=== PATIENT | female | born 1955 | race Caucasian/White ===

== ENCOUNTER 2017-04-08 07:49 | Emergency (ER) | payer OTHER ==
[~2017-04-08] VITALS: Ht 167.6 cm; Wt 72.6 kg
[2017-04-08 08:01] VITALS: BP_SYST 161
[2017-04-08] MEDS ORDERED: DULO60CA41 PO (08:37)
[2017-04-08] MEDS ORDERED: DIGO125T79 PO (08:37)
[2017-04-08] MEDS ORDERED: ATEN50TA PO (08:37)
[2017-04-08] MEDS ORDERED: OXCA150T5 PO (08:37)
[2017-04-08] MEDS ORDERED: PRO40 PO (08:37)
[2017-04-08] MEDS ORDERED: HYDR-1189 PO (08:37)
[2017-04-08] MEDS ORDERED: BUPR300T55 PO (08:37)
[2017-04-08] MEDS ORDERED: NOR10 PO (08:37)
[2017-04-08 08:53] LABS: HEMATOCRIT 26.4 % (36-48); HEMOGLOBIN 8.2 g/dL (12.0-16.0); MEAN CORPUSCULAR HEMOGLOBIN 25 pg (27-31); MEAN CORPUSCULAR HGB CONC 31 % (32-36); MEAN CORPUSCULAR VOLUME 81 fL (79.0-98.0); PLATELET COUNT (AUTO) 407 K/uL (130-430); RED BLOOD CELL COUNT(AUTO) 3.26 MIL/uL (4.2-6.2); RED CELL DISTRIBUTION WIDTH 18.8 % (9.0-15.0); WHITE BLOOD COUNT (AUTO) 3.2 K/uL (4.8-10.8)
[2017-04-08 08:58] LABS: CALCIUM 9.1 mg/dL (8.4-11.0); POTASSIUM 4.4 mmol/L (3.5-5.1)
[2017-04-08 09:02] LABS: PROTHROMBIN TIME 9.7 SECS (9.5-12.5)
[2017-04-08 09:07] LABS: ALBUMIN 3.7 g/dL (3.4-4.8); DIGOXIN 0.2 ng/mL (0.80-2.00); TOTAL BILIRUBIN 0.2 mg/dL (0.0-1.0)
[2017-04-08] MEDS: ACETAMINOPHEN 325 MG TABLET PO ONE (09:13)
[2017-04-08 10:16] LABS: BAND % (MANUAL) 5 % (0-6); BASOPHILS % (MANUAL) 0 % (0-2); EOSINOPHILS % (MANUAL) 5 % (0-7); LYMPHOCYTES % (MANUAL) 18 % (20-46); MONOCYTES % (MANUAL) 3 % (0-11)
[2017-04-08 10:21] VITALS: BP_SYST 148
== END 2017-04-08 10:21 | disposition home or self-care (01) ==
LOC: SED 07:49
DX: D64.9 Anemia, unspecified (principal); J40 Bronchitis, not specified as acute or chronic; R51 Headache
CPT/HCPCS: 36415; 70450-TC; 71020-TC; 80053; 80162-TC; 84484; 85007; 85027; 85610-TC; 85730-TC; 86886; 86900; 86901; 93005; 99285

== ENCOUNTER 2017-04-20 18:44 | Emergency (ER) | payer OTHER, MEDICAID ==
[~2017-04-20] VITALS: Ht 167.6 cm; Wt 72.6 kg
[~2017-04-20 18:44] MED LIST: ATEN50TA PO; BUPR300T55 PO; DIGO125T79 PO; DULO60CA41 PO; HYDR-1189 PO; NOR10 PO; OXCA150T5 PO; PRO40 PO
[2017-04-20 18:46] VITALS: BP_SYST 99
--- NOTE | 2017-04-20 18:50 | NUR ---
Patient triaged and placed in waiting room. VSS and patient appears in no acute distress at this time. Awaiting available bed and MD notified of need for MSE.
--- NOTE | 2017-04-20 19:15 | NUR ---
Patient called for labs and EKG, states she's "stepping out for 10 min to eat" will return in 10 min.
--- NOTE | 2017-04-20 19:38 | NUR ---
Patient to lab for lab draw.
[2017-04-20] MEDS ORDERED: NS 500 ML IV SCH (21:01)
[2017-04-20 21:06] LABS: HEMOGLOBIN 7.7 g/dL (12.0-16.0); MEAN CORPUSCULAR HEMOGLOBIN 24 pg (27-31); MEAN CORPUSCULAR HGB CONC 30 % (32-36); MEAN CORPUSCULAR VOLUME 80 fL (79.0-98.0); PLATELET COUNT (AUTO) 310 K/uL (130-430); PROTHROMBIN TIME 9.8 SECS (9.5-12.5); RED BLOOD CELL COUNT(AUTO) 3.26 MIL/uL (4.2-6.2); WHITE BLOOD COUNT (AUTO) 5.6 K/uL (4.8-10.8)
[2017-04-20 21:07] LABS: ALBUMIN 3.9 g/dL (3.4-4.8); CALCIUM 9.2 mg/dL (8.4-11.0); CREATININE 2.44 mg/dL (0.55-1.30); POTASSIUM 4.2 mmol/L (3.5-5.1); TOTAL BILIRUBIN 0.2 mg/dL (0.0-1.0)
[2017-04-20] MEDS ORDERED: PANTOPRAZOLE SODIUM 40 MG/VIAL (PROTONIX) IVP ONE (21:15)
--- NOTE | 2017-04-20 21:22 | NUR ---
Patient to ER bed 6 to gown for evaluation. Side rails up. Report given to ROSA MARIA SHIELDS.
--- NOTE | 2017-04-20 21:23 | NUR ---
ER MD Verduzco at bedside for medical evaluation.
--- NOTE | 2017-04-20 21:25 | NUR ---
Patient brought in by ambulance [facility] for complaint of brigh red blood with BM and weakness for several months. Patient AOx4. Patient states no other symptoms or complaints at this time.
[2017-04-20 21:30] LABS: BASOPHILS % (MANUAL) 0 % (0-2); EOSINOPHILS % (MANUAL) 3 % (0-7); LYMPHOCYTES % (MANUAL) 15 % (20-46); MONOCYTES % (MANUAL) 8 % (0-11)
--- NOTE | 2017-04-20 22:10 | NUR ---
# 20 gauge angiocath placed to LAC. Use of asceptic technique. Opsite placed over site. Blood return noted. Flushed with 10 cc of normal saline. No evidence of infiltration noted. Patient tolerated well.
[2017-04-20] MEDS ORDERED: ACETAMINOPHEN 500 MG TABLET PO ONE (22:30)
--- NOTE | 2017-04-20 22:45 | NUR ---
IVF infusing with no s/s of infiltration at this time. Will cont to monitor.
--- NOTE | 2017-04-20 22:50 | NUR ---
No adverse reactions noted after medication administration. Will continue to monitor.
[2017-04-20 23:54] VITALS: BP_SYST 105
--- NOTE | 2017-04-20 23:54 | NUR ---
Patient given written and verbal discharge instructions and verbalizes understanding. ER MD discussed with patient the results and treatment provided. Patient in stable condition. ID arm band removed. IV catheter removed intact and dressing applied, no active bleeding. Rx of Iron given. Patient educated on pain management and to follow up with PMD. Pain Scale 0/10. Opportunity for questions provided and answered.
== END 2017-04-20 23:54 | disposition home or self-care (01) ==
LOC: SED 18:44
DX: K92.2 Gastrointestinal hemorrhage, unspecified (principal); R42 Dizziness and giddiness; D64.9 Anemia, unspecified
CPT/HCPCS: 36415; 71045; 80053; 85007; 85027; 85610; 85730; 93005; 96361; 96374; 99285; C9113; J7040

== ENCOUNTER 2017-11-05 16:36 | Emergency (ER) | payer OTHER, MEDICAID ==
[~2017-11-05] VITALS: Ht 167.6 cm; Wt 70.3 kg
[2017-11-05 16:50] VITALS: BP_SYST 102
[2017-11-05 18:15] VITALS: BP_SYST 100
== END 2017-11-05 18:15 | disposition home or self-care (01) ==
LOC: SED 16:36
DX: S61.216A Laceration without foreign body of right little finger without damage to nail, initial encounter (principal); I10 Essential (primary) hypertension; F17.210 Nicotine dependence, cigarettes, uncomplicated; Z79.899 Other long term (current) drug therapy; W20.8XXA Other cause of strike by thrown, projected or falling object, initial encounter; Y93.89 Activity, other specified; Y92.89 Other specified places as the place of occurrence of the external cause; Y99.8 Other external cause status
CPT/HCPCS: 99283

== ENCOUNTER 2017-12-16 22:21 | Emergency (ER) | payer OTHER, MEDICAID ==
[~2017-12-16] VITALS: Ht 167.6 cm; Wt 70.3 kg
[2017-12-16 22:29] VITALS: BP_SYST 109
[2017-12-16] MEDS ORDERED: KETOROLAC TROMETHAMINE 30 MG VIAL IVP ONE (22:30)
[2017-12-16] MEDS ORDERED: NACL 0.9% 1,000 ML IV ONE (22:30)
[2017-12-16 22:58] LABS: HEMATOCRIT 31.3 % (36-48); HEMOGLOBIN 10.5 g/dL (12.0-16.0); MEAN CORPUSCULAR HEMOGLOBIN 31 pg (27-31); MEAN CORPUSCULAR HGB CONC 34 % (32-36); MEAN CORPUSCULAR VOLUME 91 fL (79.0-98.0); PLATELET COUNT (AUTO) 412 K/uL (130-430); RED BLOOD CELL COUNT(AUTO) 3.43 MIL/uL (4.2-6.2); WHITE BLOOD COUNT (AUTO) 6.5 K/uL (4.8-10.8)
[2017-12-16] MEDS ORDERED: HYDR-3110 PO (22:58)
[2017-12-16] MEDS ORDERED: DIPH25CA83 PO (22:58)
[2017-12-16] MEDS ORDERED: ACET-2165 PO (22:58)
[2017-12-16] MEDS ORDERED: ZOLP10TA2 PO (22:58)
[2017-12-16] MEDS ORDERED: BUPR300T55 PO (22:58)
[2017-12-16] MEDS ORDERED: TRAZ-126 PO (22:58)
[2017-12-16] MEDS ORDERED: AMPH30CA7 PO (22:58)
[2017-12-16] MEDS ORDERED: DULO60CA41 PO (22:58)
[2017-12-16 22:59] LABS: CALCIUM 9.2 mg/dL (8.4-11.0); CREATININE 1.6 mg/dL (0.55-1.30); POTASSIUM 3.6 mmol/L (3.5-5.1)
[2017-12-16 23:05] LABS: ALBUMIN 4.3 g/dL (3.4-4.8); TOTAL BILIRUBIN 0.3 mg/dL (0.0-1.0)
[2017-12-16 23:17] LABS: BASOPHILS % (MANUAL) 0 % (0-2); EOSINOPHILS % (MANUAL) 2 % (0-7); LYMPHOCYTES % (MANUAL) 12 % (20-46); MONOCYTES % (MANUAL) 9 % (0-11)
[2017-12-17] MEDS ORDERED: SUMAtriptan SUCCINATE 6 MG/0.5 ML VIAL SUBCUT ONE
[2017-12-17 00:23] VITALS: BP_SYST 110
== END 2017-12-17 00:23 | disposition home or self-care (01) ==
LOC: SED 22:21
DX: N17.9 Acute kidney failure, unspecified (principal); F41.9 Anxiety disorder, unspecified; R06.00 Dyspnea, unspecified; F10.129 Alcohol abuse with intoxication, unspecified; F17.210 Nicotine dependence, cigarettes, uncomplicated; D64.9 Anemia, unspecified; I10 Essential (primary) hypertension; F32.9 Major depressive disorder, single episode, unspecified; Z79.899 Other long term (current) drug therapy; Z71.6 Tobacco abuse counseling
CPT/HCPCS: 36415; 71045; 80053; 85007; 85027; 96361; 96372; 96374; 99285; G0482; J1885; J3030; J7030

== ENCOUNTER 2018-01-19 00:38 | Emergency (ER) | payer OTHER, MEDICAID ==
[~2018-01-19] VITALS: Ht 167.6 cm; Wt 68.0 kg
[2018-01-19 00:38] VITALS: BP_SYST 105
[~2018-01-19 00:38] MED LIST changes: +ACET-2165 PO; +AMPH30CA7 PO; -DIGO125T79 PO; +DIPH25CA83 PO; -HYDR-1189 PO; +HYDR-3110 PO; -NOR10 PO; -OXCA150T5 PO; +TRAZ-126 PO; +ZOLP10TA2 PO
--- NOTE | 2018-01-19 00:38 | NUR ---
Patient to ER bed 7 to gown for evaluation. Side rails up. Report given to ROSA MARIA MILLER.
--- NOTE | 2018-01-19 01:00 | NUR ---
Awake, alert. Pt presents complaining of rib pain and pain upon cough and inhalation. States she has bladder and kidney infection. Also states she is s/p fall 2 days ago wherein, her chest fell at the corner of thtable.
--- NOTE | 2018-01-19 01:25 | NUR ---
ER at bedside examining patient.
[2018-01-19] MEDS ORDERED: fentaNYL CITRATE/PF 100 MCG/2 ML AMP IVP ONE ×2 (01:30→03:30)
--- NOTE | 2018-01-19 02:24 | NUR ---
Fentanyl 25 mcg ivp given for c/o pain with little relief. spasms still present.
--- NOTE | 2018-01-19 03:00 | NUR ---
Slept intermittently. Multiple questions when awake. Questions answered.
[2018-01-19] MEDS ORDERED: DIPHENHYDRAMINE INJ 50 MG/ML VIAL IVP ONE (03:30)
[2018-01-19 03:31] LABS: BILIRUBIN,URINE NEGATIVE (NEGATIVE); BLOOD, URINE NEGATIVE (NEGATIVE); CLARITY/URINE CLEAR (CLEAR); COLOR,URINE YELLOW (YELLOW); GLUCOSE,URINE NEGATIVE (NEGATIVE); KETONES,URINE NEGATIVE (NEGATIVE); LEUKOCYTE ESTERASE ,URINE 1+ (NEGATIVE); NITRITE, URINE NEGATIVE (NEGATIVE); PH,URINE 5.5 (5.0-8.0); PROTEIN URINE NEGATIVE (NEGATIVE); UROBILINOGEN,URINE 0.2 (0.2-1.0)
--- NOTE | 2018-01-19 03:37 | NUR ---
Sublimaze 50 mcg ivp and benadryl 25 mg ivp given for complaints of residual pain.
--- NOTE | 2018-01-19 03:45 | NUR ---
Hungry. Ate cheese stick, chocolate pudding and drank apple juice. Took nap afterwards.
[2018-01-19 03:47] LABS: BACTERIA,URINE FEW /HPF (None Seen); RBC,URINE 0-3 /HPF (0-3)
[2018-01-19 04:40] VITALS: BP_SYST 105
--- NOTE | 2018-01-19 04:40 | NUR ---
Patient given written and verbal discharge instructions and verbalizes understanding. ER Dr Eugenio ARGUETA discussed with patient the results and treatment provided. Patient in stable condition. ID arm band removed. IV catheter removed intact and dressing applied, no active bleeding. Patient educated on pain management and to follow up with PMD. Pain Scale . Opportunity for questions provided and answered. Medication side effect fact sheet provided.
== END 2018-01-19 04:40 | disposition home or self-care (01) ==
LOC: SED 00:38
DX: R10.9 Unspecified abdominal pain (principal); F32.9 Major depressive disorder, single episode, unspecified; I10 Essential (primary) hypertension; Z79.899 Other long term (current) drug therapy
CPT/HCPCS: 71045; 71110; 81000; 87086; 96374; 96375; 96376; 99285; J1200; J3010

== ENCOUNTER 2018-11-03 02:53 | Emergency (ER) | payer OTHER, MEDICAID ==
[~2018-11-03] VITALS: Ht 167.6 cm; Wt 72.6 kg
[~2018-11-03 02:53] MED LIST changes: -TRAZ-126 PO; +TRAZ-219 PO
[2018-11-03 03:00] VITALS: BP_SYST 132
[2018-11-03] MEDS ORDERED: fentaNYL CITRATE/PF 100 MCG/2 ML AMP IM ONE (04:00)
[2018-11-03] MEDS ORDERED: DIPHENHYDRAMINE INJ 50 MG/ML VIAL IM ONE (04:00)
[2018-11-03 04:44] LABS: BASOPHILS # (AUTO) 0.1 K/uL (0.0-0.2); BASOPHILS % (AUTO) 0.9 % (0.0-2.0); EOSINOPHILS # (AUTO) 0.3 K/uL (0.0-0.4); EOSINOPHILS % (AUTO) 5.1 % (0.0-4.0); HEMATOCRIT 29.9 % (36-48); HEMOGLOBIN 9.8 g/dL (12.0-16.0); LYMPHOCYTES # (AUTO) 0.9 K/uL (1.0-5.5); MEAN CORPUSCULAR HEMOGLOBIN 29 pg (27-31); MEAN CORPUSCULAR HGB CONC 33 % (32-36); MEAN CORPUSCULAR VOLUME 90 fL (79.0-98.0); MONOCYTES # (AUTO) 0.6 K/uL (0.0-1.0); MONOCYTES % (AUTO) 10.4 % (1.7-9.3); NEUTROPHILS % (AUTO) 68.6 % (40.0-70.0); PLATELET COUNT (AUTO) 240 K/uL (130-430); RED BLOOD CELL COUNT(AUTO) 3.34 MIL/uL (4.2-6.2); RED CELL DISTRIBUTION WIDTH 16.8 % (9.0-15.0); WHITE BLOOD COUNT (AUTO) 5.9 K/uL (4.8-10.8)
[2018-11-03 04:57] LABS: CREATININE 1.4 mg/dL (0.55-1.30); POTASSIUM 3.9 mmol/L (3.5-5.1)
[2018-11-03 04:59] LABS: BILIRUBIN,URINE NEGATIVE (NEGATIVE); CLARITY/URINE CLEAR (CLEAR); COLOR,URINE YELLOW (YELLOW); GLUCOSE,URINE NEGATIVE (NEGATIVE); KETONES,URINE NEGATIVE (NEGATIVE); LEUKOCYTE ESTERASE ,URINE NEGATIVE (NEGATIVE); NITRITE, URINE NEGATIVE (NEGATIVE); PH,URINE 5.5 (5.0-8.0); PROTEIN URINE NEGATIVE (NEGATIVE); UROBILINOGEN,URINE 0.2 (0.2-1.0)
[2018-11-03 05:01] LABS: PROTHROMBIN TIME 9.9 SECS (9.5-12.5)
[2018-11-03 05:02] LABS: ALBUMIN 3.5 g/dL (3.4-4.8)
[2018-11-03 05:05] LABS: BLOOD, URINE TRACE (NEGATIVE)
[2018-11-03 05:19] LABS: TOTAL BILIRUBIN 0.1 mg/dL (0.0-1.0)
[2018-11-03 05:22] LABS: BACTERIA,URINE FEW /HPF (None Seen); WBC,URINE 0-3 /HPF (0-3)
[2018-11-03] MEDS ORDERED: PROCHLORPERAZINE EDISYLATE 10 MG/2 ML VIAL IM ONE (05:30)
[2018-11-03 07:40] VITALS: BP_SYST 138
== END 2018-11-03 07:40 | disposition home or self-care (01) ==
LOC: SED 02:53
DX: G89.29 Other chronic pain (principal); M54.5 Low back pain; D64.9 Anemia, unspecified; I10 Essential (primary) hypertension; F32.9 Major depressive disorder, single episode, unspecified; F41.9 Anxiety disorder, unspecified; F90.9 Attention-deficit hyperactivity disorder, unspecified type; Z79.899 Other long term (current) drug therapy
CPT/HCPCS: 36415; 80053; 81000; 85025; 85610; 85730; 96372; 99283; J0780; J1200; J3010

== ENCOUNTER 2021-09-04 13:52 | Emergency (ER) | payer OTHER, MEDICAID ==
[~2021-09-04] VITALS: Ht 167.6 cm; Wt 74.8 kg
[~2021-09-04 13:52] MED LIST changes: -ACET-2165 PO; +ACET325T PO; -DULO60CA41 PO; +DULO60CA42 PO; -HYDR-3110 PO; +HYDR-4280 PO; -TRAZ-219 PO; +TRAZ-251 PO
[2021-09-04 14:03] VITALS: BP_SYST 132
[2021-09-04] MEDS ORDERED: CYCLOBENZAPRINE HCL 10 MG TABLET (FLEXERIL) PO ONE (14:15)
[2021-09-04 14:45] LABS: ANION GAP 9 (5-15); CALCIUM 8.8 mg/dL (8.4-11.0); CHLORIDE 103 mmol/L (98-107); CREATININE 2.76 mg/dL (0.55-1.30); GLUCOSE 128 mg/dL (70-99); POTASSIUM 3.7 mmol/L (3.5-5.1); SODIUM SERUM 136 mmol/L (136-145); UREA NITROGEN, BLOOD 7 mg/dL (8-21)
[2021-09-04 14:47] LABS: GFR AFRICAN AMERICAN 22 mL/min (>90)
[2021-09-04 14:48] LABS: BASOPHILS # (AUTO) 0.1 K/uL (0.0-0.2); BASOPHILS % (AUTO) 1.1 % (0.0-2.0); EOSINOPHILS % (AUTO) 0.3 % (0.0-4.0); HEMATOCRIT 30.6 % (36-48); HEMOGLOBIN 9.6 g/dL (12.0-16.0); LYMPHOCYTES # (AUTO) 0.5 K/uL (1.0-5.5); MEAN CORPUSCULAR HEMOGLOBIN 23 pg (27-31); MEAN CORPUSCULAR HGB CONC 31 % (32-36); MEAN CORPUSCULAR VOLUME 74 fL (79.0-98.0); MONOCYTES # (AUTO) 0.4 K/uL (0.0-1.0); MONOCYTES % (AUTO) 7.7 % (1.7-9.3); NEUTROPHILS # (AUTO) 4.4 K/uL (1.8-7.7); NEUTROPHILS % (AUTO) 80.9 % (40.0-70.0); PLATELET COUNT (AUTO) 353 K/uL (130-430); RED BLOOD CELL COUNT(AUTO) 4.11 MIL/uL (4.2-6.2); WHITE BLOOD COUNT (AUTO) 5.5 K/uL (4.8-10.8)
[2021-09-04 14:54] LABS: ALANINE AMINOTRANSFERASE 14 U/L (12-78); ASPARTATE AMINOTRANSFERASE 16 U/L (10-37); TOTAL BILIRUBIN 0.1 mg/dL (0.0-1.0)
[2021-09-04] MEDS ORDERED: LIDOCAINE PATCH 5% 1 EA TP SCH (15:45)
[2021-09-04] MEDS ORDERED: GABAPENTIN 300 MG CAPSULE PO ONE (15:45)
[2021-09-04] MEDS ORDERED: MAG HYDROX/AL HYDROX/SIMETH 30 ML, DICYCLOMINE HCL 20 MG, LIDOCAINE VISCOUS 2% 15ML (PO... PO ONE ×3 (15:45)
[2021-09-04] MEDS ORDERED: ONDANSETRON 4 MG ODT TAB PO ONE (15:45)
[2021-09-04 16:58] LABS: ACETAMINOPHEN < 1 ug/mL (1-30); ALCOHOL, BLOOD < 3 mg/dL (<10)
[2021-09-04 17:20] VITALS: BP_SYST 132
== END 2021-09-04 17:20 | disposition left against medical advice (07) ==
LOC: SED 13:52
DX: F41.9 Anxiety disorder, unspecified (principal); M54.50 Low back pain, unspecified; K92.2 Gastrointestinal hemorrhage, unspecified; I10 Essential (primary) hypertension; R56.9 Unspecified convulsions
CPT/HCPCS: 36415; 71045; 80053; 84484; 85025; 93005; 99285; G0480; G0481; G0482; Q0162

== ENCOUNTER 2023-12-21 19:38 | Emergency (ER) | payer OTHER, MEDICAID ==
[~2023-12-21] VITALS: Ht 167.6 cm; Wt 72.6 kg
[~2023-12-21 19:38] MED LIST changes: -AMPH30CA7 PO; +DEXT30CA6 PO
[2023-12-21 19:50] VITALS: BP_SYST 105; PULSE 96; RESP 20; TEMP 97.4; O2SAT 96
[2023-12-21 20:33] LABS: BASOPHILS # (AUTO) 0.1 K/uL (0.0-0.2); BASOPHILS % (AUTO) 1.1 % (0.0-2.0); EOSINOPHILS # (AUTO) 0.1 K/uL (0.0-0.4); HEMATOCRIT 26.2 % (36-48); HEMOGLOBIN 8.5 g/dL (12.0-16.0); LYMPHOCYTES # (AUTO) 0.9 K/uL (1.0-5.5); LYMPHOCYTES % (AUTO) 18.7 % (20.5-51.5); MEAN CORPUSCULAR HEMOGLOBIN 25 pg (27-31); MEAN CORPUSCULAR HGB CONC 33 % (32-36); MEAN CORPUSCULAR VOLUME 77 fL (79.0-98.0); MONOCYTES # (AUTO) 0.5 K/uL (0.0-1.0); NEUTROPHILS # (AUTO) 3.3 K/uL (1.8-7.7); NEUTROPHILS % (AUTO) 68.2 % (40.0-70.0); PLATELET COUNT (AUTO) 368 K/uL (130-430); RED BLOOD CELL COUNT(AUTO) 3.39 MIL/uL (4.2-6.2); RED CELL DISTRIBUTION WIDTH 17.4 % (9.0-15.0); WHITE BLOOD COUNT (AUTO) 4.9 K/uL (4.8-10.8)
[2023-12-21 20:53] LABS: ACETAMINOPHEN 4 ug/mL (1-30); ALANINE AMINOTRANSFERASE 16 U/L (12-78); ALBUMIN 3.8 g/dL (3.4-4.8); ANION GAP 9 (5-15); ASPARTATE AMINOTRANSFERASE 15 U/L (10-37); BILIRUBIN,DIRECT < 0.1 mg/dL (0.0-0.3); CALCIUM 8.4 mg/dL (8.4-11.0); CARBON DIOXIDE 25 mmol/L (23-29); CHLORIDE 97 mmol/L (98-107); CREATININE 2.57 mg/dL (0.55-1.30); GFR AFRICAN AMERICAN 24 mL/min (>90); GLUCOSE 101 mg/dL (74-106); POTASSIUM 4.5 mmol/L (3.5-5.1); SALICYLATE 4 mg/dL (3-30); SODIUM SERUM 131 mmol/L (136-145); TOTAL BILIRUBIN 0.2 mg/dL (0.0-1.0); TOTAL PROTEIN, SERUM 6.9 g/dL (6.4-8.3); UREA NITROGEN, BLOOD 23 mg/dL (8-21)
[2023-12-21 20:56] LABS: ALCOHOL, BLOOD < 3 mg/dL (<10); GFR NON AFRICAN-AMERICAN 20 mL/min (>90)
[2023-12-21] MEDS: KETOROLAC TROMETHAMINE 30 MG VIAL IVP ONE (21:09)
[2023-12-21] MEDS: NACL 0.9% 1,000 ML IV ONE (21:21)
[2023-12-21 21:47] VITALS: BP_SYST 132; PULSE 96; RESP 20; TEMP 97.4; O2SAT 100
== END 2023-12-21 21:47 | disposition home or self-care (01) ==
LOC: SED 19:38
DX: T39.1X1A Poisoning by 4-Aminophenol derivatives, accidental (unintentional), initial encounter (principal); I10 Essential (primary) hypertension; F32.A Depression, unspecified; Z88.6 Allergy status to analgesic agent; Z79.899 Other long term (current) drug therapy; Z79.2 Long term (current) use of antibiotics; Y92.89 Other specified places as the place of occurrence of the external cause
CPT/HCPCS: 99284; 96374; 80076; 80048; 85025; 36415; 93005; G0482; J1885; G0480; G0481

== ENCOUNTER 2023-12-27 04:37 | Inpatient (IN) | payer OTHER, MEDICAID ==
[~2023-12-27] VITALS: Ht 167.6 cm; Wt 79.4 kg
[2023-12-27 04:47] VITALS: BP_SYST 97; PULSE 97; RESP 20; TEMP 96.9; O2SAT 94
[2023-12-27] MEDS: KETOROLAC TROMETHAMINE 30 MG VIAL IVP ONE (05:35)
[2023-12-27] MEDS: ONDANSETRON HCL 4 MG/2 ML VIAL IVP ONE (05:37)
[2023-12-27 05:42] LABS: BASOPHILS # (AUTO) 0.1 K/uL (0.0-0.2); BASOPHILS % (AUTO) 0.8 % (0.0-2.0); EOSINOPHILS # (AUTO) 0.3 K/uL (0.0-0.4); EOSINOPHILS % (AUTO) 3.7 % (0.0-4.0); HEMOGLOBIN 7.2 g/dL (12.0-16.0); LYMPHOCYTES # (AUTO) 0.8 K/uL (1.0-5.5); LYMPHOCYTES % (AUTO) 10.1 % (20.5-51.5); MEAN CORPUSCULAR HEMOGLOBIN 26 pg (27-31); MEAN CORPUSCULAR HGB CONC 34 % (32-36); MEAN CORPUSCULAR VOLUME 76 fL (79.0-98.0); MONOCYTES # (AUTO) 0.7 K/uL (0.0-1.0); MONOCYTES % (AUTO) 8.5 % (1.7-9.3); NEUTROPHILS # (AUTO) 6.1 K/uL (1.8-7.7); NEUTROPHILS % (AUTO) 76.9 % (40.0-70.0); PLATELET COUNT (AUTO) 343 K/uL (130-430); RED BLOOD CELL COUNT(AUTO) 2.81 MIL/uL (4.2-6.2); RED CELL DISTRIBUTION WIDTH 17.4 % (9.0-15.0)
[2023-12-27 05:54] LABS: HEMATOCRIT 21.4 % (36-48)
[2023-12-27 06:16] LABS: INR 0.9 (0.8-1.2); PROTHROMBIN TIME 9.7 SECS (9.5-12.5)
[2023-12-27 07:44] LABS: ACETAMINOPHEN 2 ug/mL (1-30); ALANINE AMINOTRANSFERASE 19 U/L (12-78); ALBUMIN 3.7 g/dL (3.4-4.8); AMYLASE 44 U/L (0-100); ANION GAP 10 (5-15); ASPARTATE AMINOTRANSFERASE 19 U/L (10-37); BILIRUBIN,DIRECT 0.1 mg/dL (0.0-0.3); CALCIUM 8.5 mg/dL (8.4-11.0); CARBON DIOXIDE 23 mmol/L (23-29); CREATININE 2.21 mg/dL (0.55-1.30); GFR AFRICAN AMERICAN 28 mL/min (>90); GLUCOSE 99 mg/dL (74-106); LIPASE 41 U/L (16-77); SALICYLATE 3 mg/dL (3-30); TOTAL BILIRUBIN 0.1 mg/dL (0.0-1.0); TOTAL PROTEIN, SERUM 6.8 g/dL (6.4-8.3); UREA NITROGEN, BLOOD 23 mg/dL (8-21)
[2023-12-27 07:55] LABS: ALCOHOL, BLOOD < 3 mg/dL (<10); CHLORIDE 85 mmol/L (98-107); GFR NON AFRICAN-AMERICAN 23 mL/min (>90); SODIUM SERUM 118 mmol/L (136-145)
[2023-12-27] MEDS: NACL 0.9% 1,000 ML IV SCH (08:25)
[2023-12-27] MEDS: PANTOPRAZOLE SODIUM 40 MG/VIAL (PROTONIX) IVP ONE (08:25)
[2023-12-27] MEDS ORDERED: NALOXONE HCL 0.4 MG/ML AMP (NARCAN) IVP PRN ×2 (09:45)
[2023-12-27] MEDS ORDERED: ACETAMINOPHEN 325 MG TABLET PO PRN ×2 (09:45→14:30)
[2023-12-27] MEDS: PANTOPRAZOLE SODIUM 80 MG in NS 100 ML IV ONE (10:21)
[2023-12-27] MEDS ORDERED: PANTOPRAZOLE SODIUM 40 MG/VIAL (PROTONIX) ONE (10:23)
[2023-12-27 11:11] VITALS: BP_SYST 131; PULSE 88; RESP 18; TEMP 97.4
[2023-12-27 11:14] VITALS: BP_SYST 119; PULSE 91; RESP 18; TEMP 97.8
[2023-12-27] MEDS: HYDROcodone/ACETAMIN 10-325 MG TAB PO PRN (13:03)
[2023-12-27] MEDS ORDERED: DIPHENHYDRAMINE HCL 25 MG CAPSULE PO PRN (14:30)
[2023-12-27] MEDS ORDERED: ZOLPIDEM TARTRATE 5 MG TABLET PO SCH (14:30)
[2023-12-27] MEDS ORDERED: NON-FORMULARY MEDICATION (Hydrocodone Bit/Acetaminophen (Hydrocodon-Acetaminophen 5-300) 1 PO PRN (14:30)
[2023-12-27 14:56] LABS: BASOPHILS % (AUTO) 0.4 % (0.0-2.0); EOSINOPHILS # (AUTO) 0.2 K/uL (0.0-0.4); EOSINOPHILS % (AUTO) 2.7 % (0.0-4.0); HEMOGLOBIN 7.2 g/dL (12.0-16.0); LYMPHOCYTES # (AUTO) 0.4 K/uL (1.0-5.5); MEAN CORPUSCULAR HEMOGLOBIN 24 pg (27-31); MEAN CORPUSCULAR HGB CONC 32 % (32-36); MEAN CORPUSCULAR VOLUME 77 fL (79.0-98.0); MONOCYTES # (AUTO) 0.6 K/uL (0.0-1.0); MONOCYTES % (AUTO) 7.6 % (1.7-9.3); NEUTROPHILS # (AUTO) 6.1 K/uL (1.8-7.7); NEUTROPHILS % (AUTO) 83.3 % (40.0-70.0); PLATELET COUNT (AUTO) 326 K/uL (130-430); RED CELL DISTRIBUTION WIDTH 17.6 % (9.0-15.0); WHITE BLOOD COUNT (AUTO) 7.3 K/uL (4.8-10.8)
[2023-12-27 15:12] LABS: CALCIUM 8.4 mg/dL (8.4-11.0); CREATININE 1.92 mg/dL (0.55-1.30); PHOSPHORUS 4.2 mg/dL (2.7-4.5); POTASSIUM 4.1 mmol/L (3.5-5.1)
[2023-12-27 16:18] VITALS: O2SAT 97
[2023-12-27] MEDS: HYDROcodone/ACETAMIN 5-325 MG TAB (NORCO/ VICODIN) PO PRN (16:41)
[2023-12-27] MEDS ORDERED: ALPR0.5T PO (17:25)
[2023-12-27] MEDS ORDERED: CYCL10TA24 PO (17:30)
[2023-12-27] MEDS ORDERED: OXCA150T5 PO (17:31)
[2023-12-27] MEDS: BISACODYL 5 MG TABLET.DR (DULCOLAX) PO ONE (18:06)
[2023-12-27] MEDS: GOLYTELY / COLYTE SOLUTION 4 LITERS PO ONE (18:07)
[2023-12-27] MEDS ORDERED: SOD FERRIC GLUC COMPLEX/SUC 125 MG in NS 100 ML IV SCH (19:30)
[2023-12-27] MEDS ORDERED: CYANOCOBALAMIN (VITAMIN B-12) 1,000 MCG TABLET PO ONE (19:30)
[2023-12-27] MEDS ORDERED: NEPHROVITE, (FOLIC ACID/VITAMIN B COMP W-C 1 TAB) PO ONE (19:30)
[2023-12-27] MEDS ORDERED: LORazepam 2 MG/ML VIAL IVP ONE (19:45)
[2023-12-27] MEDS ORDERED: LORazepam 2 MG/ML VIAL IVP PRN (19:45)
[2023-12-27] MEDS ORDERED: HALOPERIDOL LACTATE 5 MG/ML VIAL IM PRN (19:45)
[2023-12-27 19:56] LABS: TOTAL IRON BIND. CAPACITY 410 ug/dL (250-450)
[2023-12-27] MEDS ORDERED: traZODone HCL 50 MG TABLET (DESYREL) PO SCH (21:00)
[2023-12-27] MEDS ORDERED: PANTOPRAZOLE SODIUM 40 MG/VIAL (PROTONIX) IVP SCH (21:00)
[2023-12-28] MEDS ORDERED: MIDAZOLAM HCL 5 MG/5 ML VIAL ONE (08:05)
[2023-12-28] MEDS ORDERED: SIMETHICONE 40 MG/0.6 ML ML ONE (08:05)
[2023-12-28] MEDS ORDERED: MEPERIDINE 100 MG INJ. 100 MG/ML VIAL ONE (08:05)
[2023-12-28] MEDS ORDERED: ATENOLOL 50 MG TABLET (TENORMIN) PO SCH (09:00)
[2023-12-28] MEDS ORDERED: CYANOCOBALAMIN (VITAMIN B-12) 1,000 MCG TABLET PO SCH (09:00)
[2023-12-28] MEDS ORDERED: AMPHET ASP PO SCH (09:00)
[2023-12-28] MEDS ORDERED: AMPHET PO SCH (09:00)
[2023-12-28] MEDS ORDERED: NEPHROVITE, (FOLIC ACID/VITAMIN B COMP W-C 1 TAB) PO SCH (09:00)
[2023-12-28] MEDS ORDERED: buPROPion HCL 150 MG XL TAB PO SCH (09:00)
[2023-12-28] MEDS ORDERED: PANTOPRAZOLE SODIUM 40 MG TAB PO SCH (09:00)
[2023-12-28] MEDS ORDERED: [UNRECOGNIZED DRUG - OTHER] PO SCH (09:00)
[2023-12-28] MEDS ORDERED: D AMPHET PO SCH (09:00)
[2023-12-28] MEDS ORDERED: DULoxetine HCL 30 MG CAPSULE.DR (CYMBALTA) PO SCH (09:00)
== END 2023-12-27 19:30 | disposition left against medical advice (07) | DRG 377 ==
LOC: SED 04:37 → STU 07:41
PROVIDERS: ADMIT Internal Medicine; ATTEND Internal Medicine
DX: K92.2 Gastrointestinal hemorrhage, unspecified (principal); G92.8 Other toxic encephalopathy; N17.0 Acute kidney failure with tubular necrosis; D62 Acute posthemorrhagic anemia; E87.1 Hypo-osmolality and hyponatremia; Z53.29 Procedure and treatment not carried out because of patient's decision for other reasons; F10.10 Alcohol abuse, uncomplicated; Z79.899 Other long term (current) drug therapy; Z88.8 Allergy status to other drugs, medicaments and biological substances; N18.9 Chronic kidney disease, unspecified
CPT/HCPCS: 36415; 72110; 80048; 80076; 82150; 82272; 83540; 83550; 83690; 84100; 84484; 85025; 85610; 85730; 86886; 86900; 86901; 93005; 96365; 99285; G0378; G0480; G0481; G0482; J1885; J2175; J2250; J2405; J2470; J2916